=== PATIENT | female | born 1990 | race Caucasian/White ===

== ENCOUNTER 2017-08-20 08:26 | Emergency (ER) | payer SELFPAY ==
[~2017-08-20 08:26] MED LIST: LAMI1CRE TOPICAL; MACR100C PO; PREN0.01 PO; PROG100C PO
[2017-08-20 08:27] VITALS: BP 110/72; PULSE 90; RESP 16; TEMP 98.8; O2SAT 99
[2017-08-20] MEDS ORDERED: ACETAMINOPHEN 650 MG/20.3 ML UDC PO ONE (09:00)
--- NOTE | 2017-08-20 09:03 | PD ---
HPI Chief Complaint: Cold / Flu Symptoms Time Seen by Provider: 08:52 Travel History International Travel<30 days: No Contact w/Intl Traveler<30days: No Traveled to known affect area: No History of Present Illness HPI 26yo F with PMH of PCOS presents to the ED with c/o nasal congestion, throat pain and right ear pain for a few days. Said her daughter was diagnose with strep pharyngitis and her boss wont let her go back to work until she checks herself. Also with some cough today. Denies any fever but felt warm at home at times. Denies any chest pain, sob, n/v, abdominal pain, focal weakness or numbness. PFSH Past Medical History Diabetes: No Diminished Hearing: No Genitourinary: Yes Headaches: Yes Medical other: Yes (HSV) Psychiatric: Yes Reproductive: Yes (POLYCYSTIC OVARIAN DISEASE) Immunizations Current: No Tetanus Vaccination: > 5 Years Influenza Vaccination: No ?: Unknown : 1 Para: 1 Ovarian Cysts: Yes (POLYCYSTIC OVARIAN DZ) Past Surgical History Section: Yes (Aug 28 2015) Social History Alcohol Use: Yes (social) Tobacco Use: Yes (1/2 PPD) Substance Use: No Allergies-Medications (Allergen,Severity, Reaction): Coded Allergies: sulfamethoxazole (Unverified Adverse Reaction, Intermediate, N/V, 08/20/17 ) trimethoprim (Unverified Adverse Reaction, Intermediate, N/V, 08/20/17) Reported Meds & Prescriptions Reported Meds & Active Scripts Active No Active Prescriptions or Reported Medications Review of Systems Except as stated in HPI: all other systems reviewed are Neg Physical Exam Narrative GENERAL: 26yo F in mild distress. SKIN: Focused skin assessment warm/dry. HEAD: Atraumatic. Normocephalic. EYES: Pupils equal and round. No scleral icterus. No injection or drainage. ENT: No bilateral increased nasal turbinate swelling. Throat: No erythema or tonsillar exudate. Uvula midline. TM wnl bilaterally. NECK: Right anterior cervical lymphadenopathy. CARDIOVASCULAR: Regular rate and rhythm. No murmur appreciated. RESPIRATORY: No accessory muscle use. Clear to auscultation. Breath sounds equal bilaterally. GASTROINTESTINAL: Abdomen soft, non-tender, nondistended. MUSCULOSKELETAL: No obvious deformities. No clubbing. No cyanosis. No edema. NEUROLOGICAL: Awake and alert. No obvious cranial nerve deficits. Motor grossly within normal limits. Normal speech. PSYCHIATRIC: Appropriate mood and affect; insight and judgment normal. Data Data Last Documented VS Vital Signs Date Time Temp Pulse Resp B/P (MAP) Pulse Ox O2 Delivery O2 Flow Rate FiO2 08/20/17 08:53 Room Air 08/20/17 08:27 98.8 90 16 110/72 (85) 99 Orders Orders Acetaminophen 650 Mg/20 Ml Liq (Tylenol (08/20/17 09:00) Group A Rapid Strep Screen (08/20/17 08:59) Influenzae A/B Antigen (08/20/17 08:59) Strep Culture (Group A) (08/20/17 09:09) MDM Medical Decision Making Medical Screen Exam Complete: Yes Emergency Medical Condition: Yes Differential Diagnosis URI vs. viral pharyngitis vs. strep pharyngitis Narrative Course 26 well appearing female here with nasal congestion, right ear pain and throat pain. Do not think this is strep pharyngitis base on exam but pt said she needs testing so she can go to work. Rapid strep negative. Influenza negative. Pt given acetaminophen and pain has improved. Return precautions given. Diagnosis Primary Impression: URI (upper respiratory infection) Qualified Codes: J06.9 - Acute upper respiratory infection, unspecified Patient Instructions: General Instructions Departure Forms: Tests/Procedures Additional Instructions: Please follow up with your primary care physician in 3-7 days. Return to the ED if symptoms worsen. Group A strep negative. Med/Other Pt SpecificInfo: Prescription(s) given Scripts Acetaminophen (Tylenol) 325 Mg Tab 650 MG PO Q6H Y for PAIN SCALE 1 TO 4, #20 TAB 0 Refills Prov: Drea Odell DO 08/20/17 Fluticasone Nasal [place] (Flonase Nasal [place]) 50 Mcg/Act [place] 50 MCG EACH NARE BID for Allergies, #1 BOTTLE 0 Refills Prov: Drea Odell DO 08/20/17 Disposition: 01 DISCHARGE HOME Condition: Stable Drea Odell DO Aug 20, 2017 09:03
[2017-08-20] MEDS ORDERED: TYLE325T PO (10:17)
[2017-08-20] MEDS ORDERED: FLUT1SPR5 EACH NARE (10:17)
== END 2017-08-20 10:28 | disposition home or self-care (01) ==
LOC: PHED 08:26
DX: J06.9 Acute upper respiratory infection, unspecified (principal); E28.2 Polycystic ovarian syndrome; F17.200 Nicotine dependence, unspecified, uncomplicated
CPT/HCPCS: 87081; 87804; 87880; 99283

== ENCOUNTER 2017-09-17 08:32 | Emergency (ER) | payer SELFPAY ==
[~2017-09-17] VITALS: Ht 167.6 cm; Wt 130.0 kg
[~2017-09-17 08:32] MED LIST changes: +FLUT1SPR5 EACH NARE; -LAMI1CRE TOPICAL; -MACR100C PO; -PREN0.01 PO; -PROG100C PO; +TYLE325T PO
[2017-09-17 08:37] VITALS: BP 129/79; PULSE 89; RESP 16; TEMP 97.8; O2SAT 98
--- NOTE | 2017-09-17 09:12 | PD ---
HPI Chief Complaint: GI Complaint Time Seen by Provider: 08:58 Travel History International Travel<30 days: No Contact w/Intl Traveler<30days: No Traveled to known affect area: No History of Present Illness HPI This 26-year-old female is complaining of lower abdominal pain. She says the pain started about a week and a half ago but has been getting progressively worse. She had some vaginal discharge last week. Her last regular period was July 30. She has had some light spotting last couple of days but has not yet had a period. She has taken home tests which have been negative since the pain was quite severe this morning and she took some ibuprofen which provided some relief PFSH Past Medical History Diabetes: No Diminished Hearing: No Genitourinary: Yes Headaches: Yes Psychiatric: Yes Reproductive: Yes (POLYCYSTIC OVARIAN DISEASE) Immunizations Current: No : 1 Para: 1 Ovarian Cysts: Yes (POLYCYSTIC OVARIAN DZ) Past Surgical History Section: Yes (Aug 28 2015) Social History Alcohol Use: Yes (social) Tobacco Use: Yes (09/08 PPD) Substance Use: No Allergies-Medications (Allergen,Severity, Reaction): Coded Allergies: sulfamethoxazole (Unverified Adverse Reaction, Intermediate, N/V, 09/17/17) trimethoprim (Unverified Adverse Reaction, Intermediate, N/V, 09/17/17) Reported Meds & Prescriptions Reported Meds & Active Scripts Active Tylenol (Acetaminophen) 325 Mg Tab 650 Mg PO Q6H PRN Flonase Nasal [place] (Fluticasone Nasal [place]) 50 Mcg/Act [place] 50 Mcg EACH NARE BID Review of Systems Except as stated in HPI: all other systems reviewed are Neg General / Constitutional: No: Fever, Chills Eyes: No: Diploplia HENT: No: Headaches, Vertigo Cardiovascular: No: Chest Pain or Discomfort, Palpitations Respiratory: No: Cough, Shortness of Breath Gastrointestinal: Positive: Abdominal Pain, No: Nausea Genitourinary: Positive: Pelvic Pain, No: Urgency, Frequency Skin: No Rash, No Itching Neurologic: No: Weakness, Dizziness Endocrine: No: Cold Intolerance Hematologic/Lymphatic: No: Easy Bruising Physical Exam Narrative GENERAL: Well-developed female SKIN: Focused skin assessment warm/dry. HEAD: Atraumatic. Normocephalic. EYES: Pupils equal and round. No scleral icterus. No injection or drainage. ENT: No nasal bleeding or discharge. Mucous membranes pink and moist. NECK: Trachea midline. No JVD. CARDIOVASCULAR: Regular rate and rhythm. No murmur appreciated. RESPIRATORY: No accessory muscle use. Clear to auscultation. Breath sounds equal bilaterally. GASTROINTESTINAL: Abdomen soft, non-tender, nondistended. Hepatic and splenic margins not palpable. [place]: On pelvic exam there is slight discharge. There is some pain with movement of the cervix. No adnexal masses are felt MUSCULOSKELETAL: No obvious deformities. No clubbing. No cyanosis. No edema. NEUROLOGICAL: Awake and alert. No obvious cranial nerve deficits. Motor grossly within normal limits. Normal speech. PSYCHIATRIC: Appropriate mood and affect; insight and judgment normal. Data Data Last Documented VS Vital Signs Date Time Temp Pulse Resp B/P (MAP) Pulse Ox O2 Delivery O2 Flow Rate FiO2 09/17/17 12:36 68 16 121/60 (80) 99 Room Air 09/17/17 08:37 97.8 Orders Orders Urinalysis - C+S If Indicated (09/17/17 08:44) Ed Urine Pregnancytest Poc (09/17/17 08:44) Beta Hcg (Quant/Titer) (09/17/17 09:09) Complete Blood Count With Diff (09/17/17 09:09) Comprehensive Metabolic Panel (09/17/17 09:09) Gc And Chlamydia Pcr (09/17/17 09:09) Wet Prep Profile (09/17/17 09:09) Urine Culture (09/17/17 08:40) Ct Abd/Pel W Iv Contrast(Rout) (09/17/17 ) Ceftriaxone Inj (Rocephin Inj) (09/17/17 12:15) Iohexol 350 Inj (Omnipaque 350 Inj) (09/17/17 12:53) Labs Laboratory Tests Test 09/17/17 08:40 09/17/17 10:00 09/17/17 10:11 Urine Collection Type CLEAN CATCH Urine Color YELLOW Urine Turbidity CLEAR Urine pH 5.5 Urine Specific [place] 1.014 Urine Protein NEG mg/dL Urine Glucose (UA) NEG mg/dL Urine Ketones NEG mg/dL Urine Occult Blood LARGE Urine Nitrite NEG Urine Bilirubin NEG Urine Leukocyte Esterase NEG Urine RBC 4-9 /hpf Urine Squamous Epithelial Cells 0-5 /hpf Urine Bacteria MOD /hpf Microscopic Urinalysis Comment CULTURE INDICATED Clue Cells (Wet Prep) NONE SEEN Vaginal Trichomonas (Wet Prep) NONE SEEN Vaginal Yeast (Wet Prep) NONE SEEN White Blood Count 5.2 TH/MM3 Red Blood Count 4.64 MIL/MM3 Hemoglobin 13.8 GM/DL Hematocrit 41.4 % Mean Corpuscular Volume 89.3 FL Mean Corpuscular Hemoglobin 29.6 PG Mean Corpuscular Hemoglobin Concent 33.2 % Red Cell Distribution Width 12.0 % Platelet Count 253 TH/MM3 Mean Platelet Volume 7.7 FL Neutrophils (%) (Auto) 63.8 % Lymphocytes (%) (Auto) 27.2 % Monocytes (%) (Auto) 5.8 % Eosinophils (%) (Auto) 2.3 % Basophils (%) (Auto) 0.9 % Neutrophils # (Auto) 3.3 TH/MM3 Lymphocytes # (Auto) 1.4 TH/MM3 Monocytes # (Auto) 0.3 TH/MM3 Eosinophils # (Auto) 0.1 TH/MM3 Basophils # (Auto) 0.0 TH/MM3 CBC Comment DIFF FINAL Differential Comment Blood Urea Nitrogen 7 MG/DL Creatinine 0.60 MG/DL Random Glucose 93 MG/DL Total Protein 7.6 GM/DL Albumin 3.6 GM/DL Calcium Level 8.4 MG/DL Alkaline Phosphatase 54 U/L Aspartate Amino Transf (AST/SGOT) 21 U/L Alanine Aminotransferase (ALT/SGPT) 24 U/L Total Bilirubin 0.7 MG/DL Sodium Level 140 MEQ/L Potassium Level 4.3 MEQ/L Chloride Level 105 MEQ/L Carbon Dioxide Level 23.8 MEQ/L Anion Gap 11 MEQ/L Estimat Glomerular Filtration Rate 120 ML/MIN Human Chorionic Gonadotropin, Quant LESS THAN 1 MIU/ML MDM Medical Decision Making Medical Screen Exam Complete: Yes Emergency Medical Condition: Yes Medical Record Reviewed: Yes Differential Diagnosis Differential includes diverticulitis, ovarian cyst, cervicitis Narrative Course White count is normal. CT scan of the abdomen and pelvis is negative. Patient will be treated for cervicitis Diagnosis Primary Impression: Cervicitis Scripts Doxycycline Hyclate (Vibramycin) 100 Mg Cap 100 MG PO BID for Infection for 7 Days, #14 CAP 0 Refills Prov: Antonio Zheng MD 09/17/17 Disposition: 01 DISCHARGE HOME Condition: Stable Antonio Zheng MD Sep 17, 2017 09:12
[2017-09-17 09:20] LABS: BILIRUBIN, URINE NEG (NEG); BLOOD, URINE LARGE (NEG); GLUCOSE,URINE NEG (NEG); KETONE, URINE NEG (NEG); NITRITE,URINE NEG (NEG); PH, URINE 5.5 (5.0-8.5); URINE LEUKOCYTE ESTERASE NEG (NEG)
[2017-09-17 09:21] LABS: URINE COLOR YELLOW (YELLW/STRAW)
[2017-09-17 09:31] LABS: BACTERIA, URINE MOD /hpf; SQUAMOUS EPITHELIAL CELL URINE 0-5 /hpf (0-5)
[2017-09-17 10:18] LABS: AUTOMATED NEUTROPHIL # 3.3 TH/MM3 (1.8-7.7); BASOPHIL % 0.9 % (0.0-2.0); EOSINOPHIL # 0.1 TH/MM3 (0-0.4); EOSINOPHIL % 2.3 % (0.0-4.0); HEMATOCRIT 41.4 % (35.0-46.0); HEMOGLOBIN 13.8 GM/DL (11.6-15.3); LYMPH % 27.2 % (9.0-44.0); LYMPHOCYTE # 1.4 TH/MM3 (1.0-4.8); MEAN CELL VOLUME 89.3 FL (80.0-100.0); MEAN CORPUSCULAR HEMOGLOBIN 29.6 PG (27.0-34.0); MEAN CORPUSCULAR HGB CONC 33.2 % (32.0-36.0); MEAN PLATELET VOLUME 7.7 FL (7.0-11.0); MONO % 5.8 % (0.0-8.0); MONOCYTE # 0.3 TH/MM3 (0-0.9); NEUT % 63.8 % (16.0-70.0); PLATELET COUNT 253 TH/MM3 (150-450); RED BLOOD COUNT 4.64 MIL/MM3 (4.00-5.30); WHITE BLOOD COUNT 5.2 TH/MM3 (4.0-11.0)
[2017-09-17 10:37] LABS: BLOOD UREA NITROGEN 7 MG/DL (7-18); CHLORIDE 105 MEQ/L (98-107); GLOMERULAR FILTRATION RATE 120 ML/MIN (>89); GLUCOSE,RANDOM 93 MG/DL (74-106); SODIUM (NA) 140 MEQ/L (136-145)
[2017-09-17 11:59] LABS: ALBUMIN 3.6 GM/DL (3.4-5.0); ALKALINE PHOSPHATASE 54 U/L (45-117); ALT (GPT) 24 U/L (10-53); AST (GOT) 21 U/L (15-37); BICARBONATE 23.8 MEQ/L (21.0-32.0); CALCIUM 8.4 MG/DL (8.5-10.1); TOTAL BILIRUBIN ADULT 0.7 MG/DL (0.2-1.0); TOTAL PROTEIN 7.6 GM/DL (6.4-8.2)
[2017-09-17] MEDS ORDERED: cefTRIAXone INJ 1,000 MG in SODIUM CHLORIDE 0.9% INJ 100 ML IV ONE (12:15)
[2017-09-17 12:36] VITALS: BP 121/60; PULSE 68; RESP 16; O2SAT 99
[2017-09-17] MEDS ORDERED: IOHEXOL 350 MG/ML 10 ML VIAL (for RAD DIAG) IVCONTRAST ONE (12:53)
--- NOTE | 2017-09-17 13:08 | RADRPT ---
EXAM DATE/TIME: 09/17/2017 12:42 [facility] COMPARISON: No previous studies available for comparison. INDICATIONS : Lower abdominal pain. IV CONTRAST: 90 cc Omnipaque 350 (iohexol) IV ORAL CONTRAST: No oral contrast ingested. RADIATION DOSE: 22.35 CTDIvol (mGy) MEDICAL HISTORY : Polycystic ovarian disease. SURGICAL HISTORY : section. ENCOUNTER: Initial ACUITY: 1 week PAIN SCALE: 7/10 LOCATION: Bilateral lower quadrant TECHNIQUE: Volumetric scanning of the abdomen and pelvis was performed. Using automated exposure control and ad justment of the mA and/or kV according to patient size, radiation dose was kept as low as reasonably achievable to obtain optimal diagnostic quality images. DICOM format image data is available electro nically for review and comparison. FINDINGS: LOWER LUNGS: The visualized lower lungs are clear. LIVER: Homogeneous density without lesion. There is no dilation of the biliary tree. No calcified gallston es. SPLEEN: Normal size without lesion. PANCREAS: Within normal limits. KIDNEYS: Normal in size and shape. There is no mass, stone or hydronephrosis. ADRENAL GLANDS: Within normal limits. VASCULAR: There is no aortic aneurysm. BOWEL/MESENTERY: The stomach, small bowel, and colon demonstrate no acute abnormality. There is no free intraperitone al air or fluid. ABDOMINAL WALL: Within normal limits. RETROPERITONEUM: There is no lymphadenopathy. BLADDER: No wall thickening or mass. REPRODUCTIVE: Within normal limits. INGUINAL: There is no lymphadenopathy or hernia. MUSCULOSKELETAL: Within normal limits for patient age. CONCLUSION: Normal examination. Kanu Hill MD on September 17, 2017 at 13:04 Board Certified Radiologist. This report was verified electronically.
[2017-09-17] MEDS ORDERED: VIBR100C PO (13:16)
[2017-09-17 14:04] VITALS: BP 121/83
== END 2017-09-17 14:06 | disposition home or self-care (01) ==
LOC: PHED 08:32
DX: N72 Inflammatory disease of cervix uteri (principal); E28.2 Polycystic ovarian syndrome; F17.200 Nicotine dependence, unspecified, uncomplicated; R10.2 Pelvic and perineal pain
CPT/HCPCS: 74177; 80053; 81001; 84702; 84703; 85025; 87086; 87210; 87491; 87591; 96365; 99285; J0696; Q9967

== ENCOUNTER 2017-11-10 08:56 | Emergency (ER) | payer MEDICAID ==
[~2017-11-10] VITALS: Ht 167.6 cm; Wt 128.6 kg
[~2017-11-10 08:56] MED LIST changes: +VIBR100C PO
[2017-11-10 09:00] VITALS: BP 137/67; PULSE 95; RESP 18; TEMP 99; O2SAT 98
[2017-11-10] MEDS ORDERED: SODIUM CHLOR 0.9% 1000 ML INJ 1,000 ML IV SCH (09:30)
[2017-11-10] MEDS ORDERED: SODIUM CHLORIDE 0.9% FLUSH 10 ML FLUSH IV FLUSH PRN (09:30)
[2017-11-10] MEDS ORDERED: ONDANSETRON HCL 4 MG/2 ML VIAL IVP ONE (09:30)
[2017-11-10 09:46] LABS: BASOPHIL # 0.1 TH/MM3 (0-0.2); BASOPHIL % 0.9 % (0.0-2.0); EOSINOPHIL # 0.1 TH/MM3 (0-0.4); EOSINOPHIL % 0.8 % (0.0-4.0); HEMATOCRIT 42.5 % (35.0-46.0); HEMOGLOBIN 15.1 GM/DL (11.6-15.3); LYMPHOCYTE # 0.6 TH/MM3 (1.0-4.8); MEAN CELL VOLUME 88.7 FL (80.0-100.0); MEAN CORPUSCULAR HEMOGLOBIN 31.6 PG (27.0-34.0); MEAN CORPUSCULAR HGB CONC 35.6 % (32.0-36.0); MEAN PLATELET VOLUME 7.7 FL (7.0-11.0); MONO % 2.7 % (0.0-8.0); MONOCYTE # 0.2 TH/MM3 (0-0.9); NEUT % 87.6 % (16.0-70.0); PLATELET COUNT 243 TH/MM3 (150-450); RED BLOOD COUNT 4.79 MIL/MM3 (4.00-5.30); RED CELL DISTRIBUTION WIDTH 12.2 % (11.6-17.2)
[2017-11-10 09:54] VITALS: RESP 16; O2SAT 98
[2017-11-10 09:59] LABS: ALBUMIN 3.8 GM/DL (3.4-5.0); BICARBONATE 24.4 MEQ/L (21.0-32.0); CALCIUM 8.4 MG/DL (8.5-10.1); GLUCOSE,RANDOM 93 MG/DL (74-106)
--- NOTE | 2017-11-10 09:59 | PD ---
HPI Chief Complaint: GI Complaint Time Seen by Provider: 09:28 Travel History International Travel<30 days: No Contact w/Intl Traveler<30days: No Traveled to known affect area: No History of Present Illness HPI Patient is a 27-year-old female presents emergency department with 24-hour history of cough congestion runny nose chills body aches nausea and vomiting. Patient states she did not have a flu shot this year. Denies any abdominal pain denies any chest pain or shortness of breath. Patient states her daughter is also been sick with similar but it seemed to get better. She states she took her temperature when she felt hot last night and it was normal, states her last menstrual period was about 2 weeks ago and she does not think she is now. Symptoms moderate, for the past 24 hours, gradually worsening, context as above, associated signs symptoms as above. PFSH Past Medical History Medical History: Denies Significant Hx Diabetes: No Diminished Hearing: No Genitourinary: Yes Headaches: Yes Psychiatric: Yes Reproductive: Yes (POLYCYSTIC OVARIAN DISEASE) Immunizations Current: No ?: Not : 1 Para: 1 Ovarian Cysts: Yes (POLYCYSTIC OVARIAN DZ) Past Surgical History Section: Yes (Aug 28 2015) Social History Alcohol Use: Yes (social) Tobacco Use: Yes (09/08 PPD) Substance Use: No Allergies-Medications (Allergen,Severity, Reaction): Coded Allergies: sulfamethoxazole (Unverified Adverse Reaction, Intermediate, N/V, 11/10/17) trimethoprim (Unverified Adverse Reaction, Intermediate, N/V, 11/10/17) Reported Meds & Prescriptions Reported Meds & Active Scripts Active Zofran (Ondansetron HCl) 4 Mg Tab 4 Mg PO Q6HR PRN Review of Systems Except as stated in HPI: all other systems reviewed are Neg Physical Exam Narrative GENERAL: Well-developed, morbidly obese, actively vomiting. SKIN: Focused skin assessment warm/dry. HEAD: Atraumatic. Normocephalic. EYES: Pupils equal and round. No scleral icterus. No injection or drainage. ENT: No nasal bleeding or discharge. Mucous membranes pink and moist. TMs clear bilaterally, oropharynx clear moist NECK: Trachea midline. No JVD. CARDIOVASCULAR: Regular rate and rhythm. No murmur appreciated. RESPIRATORY: No accessory muscle use. Clear to auscultation. Breath sounds equal bilaterally. GASTROINTESTINAL: Abdomen soft, non-tender, nondistended. Hepatic and splenic margins not palpable. MUSCULOSKELETAL: No obvious deformities. No clubbing. No cyanosis. No edema. NEUROLOGICAL: Awake and alert. No obvious cranial nerve deficits. Motor grossly within normal limits. Normal speech. PSYCHIATRIC: Appropriate mood and affect; insight and judgment normal. Data Data Last Documented VS Vital Signs Date Time Temp Pulse Resp B/P (MAP) Pulse Ox O2 Delivery O2 Flow Rate FiO2 11/10/17 11:59 11/10/17 11:46 93 16 99 Room Air 11/10/17 09:00 99.0 Orders Orders Complete Blood Count With Diff (11/10/17 09:30) Comprehensive Metabolic Panel (11/10/17 09:30) Lipase (11/10/17 09:30) Urinalysis - C+S If Indicated (11/10/17 09:30) Iv Access Insert/Monitor (11/10/17 09:30) Ecg Monitoring (11/10/17:30) Oximetry (11/10/17 09:30) Ondansetron Inj (Zofran Inj) (11/10/17 09:30) Sodium Chlor 0.9% 1000 Ml Inj (Ns 1000 M (11/10/17 09:30) Sodium Chloride 0.9% Flush (Ns Flush) (11/10/17 09:30) Ed Urine Pregnancytest Poc (11/10/17 09:30) Influenzae A/B Antigen (11/10/17 09:54) Ed Discharge Order (11/10/17 11:45) Hydromorphone Pf Inj (Dilaudid Pf Inj) (11/10/17 12:00) Heparin Central Flush (Heparin Central F (11/10/17 12:00) Labs Laboratory Tests Test 11/10/17 09:30 11/10/17 11:25 White Blood Count 7.0 TH/MM3 Red Blood Count 4.79 MIL/MM3 Hemoglobin 15.1 GM/DL Hematocrit 42.5 % Mean Corpuscular Volume 88.7 FL Mean Corpuscular Hemoglobin 31.6 PG Mean Corpuscular Hemoglobin Concent 35.6 % Red Cell Distribution Width 12.2 % Platelet Count 243 TH/MM3 Mean Platelet Volume 7.7 FL Neutrophils (%) (Auto) 87.6 % Lymphocytes (%) (Auto) 8.0 % Monocytes (%) (Auto) 2.7 % Eosinophils (%) (Auto) 0.8 % Basophils (%) (Auto) 0.9 % Neutrophils # (Auto) 6.0 TH/MM3 Lymphocytes # (Auto) 0.6 TH/MM3 Monocytes # (Auto) 0.2 TH/MM3 Eosinophils # (Auto) 0.1 TH/MM3 Basophils # (Auto) 0.1 TH/MM3 CBC Comment DIFF FINAL Differential Comment Blood Urea Nitrogen 11 MG/DL Creatinine 0.69 MG/DL Random Glucose 93 MG/DL Total Protein 8.0 GM/DL Albumin 3.8 GM/DL Calcium Level 8.4 MG/DL Alkaline Phosphatase 61 U/L Aspartate Amino Transf (AST/SGOT) 25 U/L Alanine Aminotransferase (ALT/SGPT) 27 U/L Total Bilirubin 1.8 MG/DL Sodium Level 137 MEQ/L Potassium Level 4.2 MEQ/L Chloride Level 105 MEQ/L Carbon Dioxide Level 24.4 MEQ/L Anion Gap 8 MEQ/L Estimat Glomerular Filtration Rate 101 ML/MIN Lipase 118 U/L Urine Collection Type CLEAN CATCH Urine Color YELLOW Urine Turbidity CLEAR Urine pH 5.5 Urine Specific [place] 1.025 Urine Protein NEG mg/dL Urine Glucose (UA) NEG mg/dL Urine Ketones NEG mg/dL Urine Occult Blood NEG Urine Nitrite NEG Urine Bilirubin NEG Urine Urobilinogen 0.2 MG/DL Urine Leukocyte Esterase NEG Urine WBC 0-2 /hpf Urine Squamous Epithelial Cells 0-5 /hpf Microscopic Urinalysis Comment CULT NOT INDICATED Urine Collection Time 11:25 MDM Medical Decision Making Medical Screen Exam Complete: Yes Emergency Medical Condition: Yes Differential Diagnosis UTI, gastritis, gastritis, viral illness, influenza. Narrative Course Patient room to the emergency department, Zofran and fluids were given to the patient is beginning to feel better. Afebrile here in the emergency department , influenza testing negative, basic labs are reassuring. Discussed results with the patient who is feeling better, discussed symptomatic management and return to ED criteria. At this time will treat symptomatically for viral illness. There is no indication further workup with the patient who has benign abdominal exam. Diagnosis Primary Impression: Nausea & vomiting Additional Impression: URI (upper respiratory infection) Departure Forms: Tests/Procedures, Work Release Enter return to work date: Nov 11, 2017 Med/Other Pt SpecificInfo: Prescription(s) given Scripts Ondansetron (Zofran) 4 Mg Tab 4 MG PO Q6HR Y for NAUSEA OR VOMITING, #20 TAB 0 Refills Prov: Quique Quigley MD 11/10/17 Disposition: 01 DISCHARGE HOME Condition: Stable Quique Quigley MD Nov 10, 2017 09:59
[2017-11-10 10:02] LABS: ALT (GPT) 27 U/L (10-53); CREATININE 0.69 MG/DL (0.50-1.00); GLOMERULAR FILTRATION RATE 101 ML/MIN (>89)
[2017-11-10 10:04] LABS: CHLORIDE 105 MEQ/L (98-107); SODIUM (NA) 137 MEQ/L (136-145); TOTAL BILIRUBIN ADULT 1.8 MG/DL (0.2-1.0)
[2017-11-10 10:05] LABS: ALKALINE PHOSPHATASE 61 U/L (45-117)
[2017-11-10 10:07] LABS: AST (GOT) 25 U/L (15-37)
[2017-11-10 10:09] LABS: BLOOD UREA NITROGEN 11 MG/DL (7-18)
[2017-11-10] MEDS ORDERED: ZOFR4TAB PO ×2 (11:35→11:45)
[2017-11-10 11:36] LABS: BILIRUBIN, URINE NEG (NEG); BLOOD, URINE NEG (NEG); GLUCOSE,URINE NEG (NEG); KETONE, URINE NEG (NEG); NITRITE,URINE NEG (NEG); PH, URINE 5.5 (5.0-8.5); URINE COLOR YELLOW (YELLW/STRAW); URINE LEUKOCYTE ESTERASE NEG (NEG)
[2017-11-10 11:42] LABS: SQUAMOUS EPITHELIAL CELL URINE 0-5 /hpf (0-5); WBC, URINE 0-2 /hpf (0-5)
[2017-11-10 11:46] VITALS: BP 118/49; PULSE 93; RESP 16; O2SAT 99
[2017-11-10] MEDS ORDERED: HYDROmorphone HCL PF 2 MG/ML VIAL IV PUSH ONE (12:00)
== END 2017-11-10 12:03 | disposition home or self-care (01) ==
LOC: PHED 08:56
DX: R11.2 Nausea with vomiting, unspecified (principal); J06.9 Acute upper respiratory infection, unspecified; F17.210 Nicotine dependence, cigarettes, uncomplicated
CPT/HCPCS: 80053; 81001; 83690; 84703; 85025; 87804; 96361; 96374; 99284; J2405; J7030